=== PATIENT | female | born 1950 | race Caucasian/White ===

== ENCOUNTER → 2019-08-31 13:51 | Outpatient (CLI) | payer MEDICARE, SELFPAY ==
--- NOTE | ~2019-08-31 | XR_ITS ---
XR wrist RT min 3V DATE: 08/31/2019 14:14 INDICATION: Right wrist pain TECHNIQUE: 4 views COMPARISON: None FINDINGS: No fracture or dislocation, periosteal reaction or bone destruction is detected. Joint spac es are preserved. No erosive change or chondrocalcinosis. IMPRESSION: No significant abnormality Reviewed, dictated and finalized at location A. IMPRESSION: No significant abnormality
== END ==
PROVIDERS: PCP Family Medicine; Visit Provider Physician Assistant
DX: M25.539 Pain in unspecified wrist (principal)
CPT/HCPCS: 73110

== ENCOUNTER → 2020-04-07 14:51 | Outpatient (CLI) | payer MEDICARE, SELFPAY ==
--- NOTE | ~2020-04-07 | XR_ITS ---
EXAMINATION: XR knee RT 3V DATE: 04/07/2020 15:16 INDICATION: Right knee pain. TECHNIQUE: 3 views of right knee were obtained. COMPARISON: Right knee radiographs 02/09/2012 FINDINGS: Bone alignment is normal. No fracture. There is mild tricompartmental osteoarthritis. There is a small knee joint effusion. IMPRESSION: 1. Mild right knee osteoarthritis. 2. Small right knee joint effusion. Reviewed, dictated and finalized at location A. [employer]
== END ==
PROVIDERS: PCP Family Medicine; Visit Provider Physician Assistant
DX: M17.11 Unilateral primary osteoarthritis, right knee (principal); M25.461 Effusion, right knee
CPT/HCPCS: 73562

== ENCOUNTER → 2020-05-01 15:02 | Outpatient (CLI) | payer MEDICARE, SELFPAY ==
--- NOTE | ~2020-05-01 | MR_ITS ---
EXAMINATION: MR knee RT wo con DATE: 05/01/2020 16:10 INDICATION: Severe medial sided right knee pain TECHNIQUE: Magnetic resonance imaging (MRI) of the right knee was performed without intravenous contr ast. Sequences included coronal PD-weighted FSE, coronal PD-weighted FS FSE, sagittal T2-weighted FS E, sagittal PD-weighted FS FSE and axial PD weighted fat saturated FSE. COMPARISON: None. FINDINGS: Medial compartment: Complex tear which extends obliquely in all 3 planes across the posterior horn and posterior body of the medial meniscus. Partial-thickness chondral ulceration with chondral surface regularity throughou t the medial tibial plateau and anterior to central weightbearing medial femoral condyle. Lateral compartment: Longitudinal vertical tear along the inner third of the body and anterior horn of the lateral meniscu s. Suggestion of the tear is complex with additional small tear involving the superior articular surf howard and the middle third of the lateral meniscal body. Evaluation of the morphology of the tear is ho wever somewhat limited by the slightly larger than typical phmxa-va-[id number] related to patient body habi tus. Deep chondral fissuring without degenerative subchondral changes at the central and medial aspec ts of the lateral tibial plateau. Juxtaposed band of deep chondral fissuring extending from anterior to posterior across the anterior to central weightbearing lateral femoral condyle also without degene rative subchondral changes. Patellofemoral compartment: Deep chondral ulceration with suggestion of early remodeling of the articular cortex with mild cortic al irregularity and underlying subarticular increased marrow signal at the medial patellar facet and apical ridge. Additional partial thickness chondral ulceration and fissuring involving up to 50% the cartilage thickness at the medial trochlea, trochlear groove and superior and medial aspects of the l ateral trochlea. Ligaments and tendons: Anterior and posterior cruciate ligaments are normal. The fibular collateral ligament complex is norm al. There is thickening of the proximal medial collateral ligament with increased intrasubstance sign al along the posterior aspect of the ligament as well as mild edema along the superficial margin cons istent with low to moderate grade sprain. The extensor mechanism is normal. Mild tendinopathy without discrete tear of the semimembranosus tendon. The visualized medial and lateral hamstring tendons as well as the iliotibial band are otherwise normal. Fluid: Small to moderate sized right knee joint effusion. No loose osteochondral bodies identified. Prepatel lar edema without a discrete bursal fluid collection. Additional synovitis with a few septations with in a 4.5 x 1.5 x 1.4 cm Aguila cyst. Osseous/other: Normal marrow signal aside from the previous noted mild subarticular cystic change at the patella. No fracture or pathologic marrow replacing process. IMPRESSION: 1. Complex medial meniscal tear. 2. Lateral meniscal tear, likely also complex. 3. Moderate medial and patellofemoral compartment predominant tricompartmental osteoarthritis with hi gh-grade patellar chondromalacia and moderate grade chondromalacia at the bilaterally at the trochlea r, tibial plateaus and weightbearing femoral condyles. 4. Low to moderate grade sprain of the medial collateral ligament. 5. Small to moderate-sized right knee joint effusion with small Aguila's cyst. Reviewed, dictated and finalized at location B. IMPRESSION: 1. Complex medial meniscal tear. 2. Lateral meniscal tear, likely also complex. 3. Moderate medial and patellofemoral compartment predominant tricompartmental osteoarthritis with high-grade patellar chondromalacia and moderat
== END ==
PROVIDERS: Visit Provider Orthopaedic Surgery
DX: S83.231A Complex tear of medial meniscus, current injury, right knee, initial encounter (principal); X58.XXXA Exposure to other specified factors, initial encounter; M25.461 Effusion, right knee; S83.411A Sprain of medial collateral ligament of right knee, initial encounter; S83.281A Other tear of lateral meniscus, current injury, right knee, initial encounter
CPT/HCPCS: 73721

== ENCOUNTER 2023-09-02 10:05 | Emergency (ER) | payer MEDICARE, MEDICAID, SELFPAY ==
[2023-09-02 10:29] VITALS: BP 145/86; PULSE 110; RESP 18; TEMP 37.5; O2SAT 95
--- NOTE | 2023-09-02 10:44 | ED.GENADULT ---
HPI - General Adult General Chief complaint: Urogenital-Female Stated complaint: Sinus/Fever Source: patient Mode of arrival: ambulatory Limitations: no limitations History of Present Illness HPI narrative: Patient presents for evaluation of multiple concerns. Her primary concern is sick symptoms. Symptoms including cough, dyspnea on exertion, subjective fever, chills, and sore throat. Her symptoms started about a week ago. A family member with whom she recently spent time tested positive for COVID. She does not smoke. She has a lesion to the left side of her tongue. Her primary care provider referred to ENT and she has an appt with them next month. She is also concerned about urinary symptoms which include dysuria and suprapubic pain. She has chronic urinary urgency, unchanged. She denies any hesitancy or frequency. Related Data Allergies Allergy/AdvReac Type Severity Reaction Status Date / Time ketorolac Allergy Unknown Dizziness Verified 09/02/23 10:07 Review of Systems Review of Systems: CONSTITUTIONAL: reports fever and chills. EYES: Denies visual changes, redness, or discharge. ENT: Reports sore throat. Reports tongue lesion. Denies rhinorrhea, congestion orotalgia. CARDIOVASCULAR: Denies chest pain, palpitations, or edema. RESPIRATORY: Reports cough and shortness of breath on exertion GASTROINTESTINAL: Denies abdominal pain, nausea, vomiting, or diarrhea. GENITOURINARY: reports dysuria and suprapubic pain without other urinary symptoms SKIN: Denies rash or itching. MUSCULOSKELETAL: Denies back pain, joint pain, or myalgia. NEUROLOGIC: Denies headache, numbness, dizziness, or weakness. PSYCHIATRIC: Denies anxiety or depression. [facility] Past Medical History Medical History Degenerative disc disease Elevated glucose Essential hypertension HLD (hyperlipidemia) Lung nodule Tongue lesion Surgical History Surgical History History of partial hysterectomy Hx of appendectomy Hx of tonsillectomy Family History Family History Unknown Depression Diabetes mellitus Hypertension Heart disease Uterine cancer Other Family history of arthritis Family history of coronary artery disease Family history of malignant neoplasm of uterus Family history of mental disorder Social History Social History Smoking status: Never smoker Second hand tobacco smoke exposure: No Alcohol intake: never Substance use: never Substance use type: does not use Lack of Transportation: YES Lack of Food: Never True Current Housing: I Have Housing Concerned About Future Housing: No Difficulty Paying Gas/Electric Bills: No Difficulty Paying for Meds: No Currently Unemployed: No Education: High School Diploma/GED Difficulty w/ Childcare or Family Care: No Spiritual care concerns: No Agree to blood products: Yes Exam Narrative: GENERAL: Well-appearing, well-nourished, and in no acute distress. HEAD: Normocephalic, atraumatic. EYES: PERRLA and EOMI. ENT: Nares clear, no rhinorrhea or epistaxis. Mucous membranes moist. There is an 8 mm raised pink lesion to the left side of her tongue Bilateral TMs pearly watt nonbulging NECK: Supple. No adenopathy or masses. No carotid bruits or JVD CHEST: Clear to auscultation. No respiratory distress. No wheezes rales or rhonchi HEART: Regular rate and rhythm. No murmur heard. Normal peripheral pulses. ABDOMEN: Soft, nontender, nondistended, normal active bowel sounds. EXTREMITIES: Normal range of motion. No edema. SKIN: Warm, dry, no rash. NEURO: No focal deficits. Alert and oriented x3. PSYCH: Normal mood and affect. Course Course Emergency Course: This is a 73-year-old female who presented
[2023-09-02 10:48] LABS: EDINFLUASCREEN Negative; EDINFLUBSCREEN Negative
[2023-09-02 10:51] LABS: EDUAAPPEAR Clear; EDUABILI Negative; EDUABLOOD Trace; EDUACOLOR1 Yellow; EDUAGLUCOSE Negative; EDUAKETONE Negative; EDUALEUKO 1+; EDUANITRATE Negative; EDUAPH 5.5; EDUAPROTEIN Negative; EDUASPGRAVITY 1.015; EDUAUROBILI 0.2
[2023-09-02 10:57] LABS: EDSTREPNEGPOS1 Presumptive Negative
== END 2023-09-02 11:32 | disposition home or self-care (01) ==
PROVIDERS: Emergency Provider Nurse Practitioner; PCP Family Medicine
DX: N39.0 Urinary tract infection, site not specified (principal); J06.9 Acute upper respiratory infection, unspecified; Z20.822 Contact with and (suspected) exposure to COVID-19; I10 Essential (primary) hypertension; E78.5 Hyperlipidemia, unspecified; Z90.711 Acquired absence of uterus with remaining cervical stump
CPT/HCPCS: 81003; 87081; 87086; 87088; 87426; 87804; 87880; 99213; G0463

== ENCOUNTER 2023-10-12 13:04 | Emergency (ER) | payer MEDICARE, MEDICAID, SELFPAY ==
--- NOTE | 2023-10-12 13:10 | ED.EXTPRO ---
HPI - Extremity Problem General Chief complaint: Extremity Problem,Nontraumatic Stated complaint: left big toe issue Time Seen by Provider: 10/12/23 13:09 Source: patient Mode of arrival: ambulatory Limitations: no limitations History of Present Illness HPI Narrative: Nellie is a 73-year-old female patient presenting to the clinic today with complaints of left great toe pain. She reports she thinks she may have stepped on something a few nights ago in her studio and she now has toe pain to the bottom of her left great toe. She denies any fever, chills, body aches. No history of gout in the past. Denies any known injury however thinks that could be broken. Patient states that she canceled her podiatry appointment that was supposed to be at 1:10 today and decided to come to the urgent care for further evaluation because her sister told her that we can take care of everything. Related Data Home Medications Medication Instructions Recorded Confirmed oxybutynin chloride 5 mg 5 mg PO DAILY 10/12/23 10/12/23 tablet,extended release 24 hr Allergies Allergy/AdvReac Type Severity Reaction Status Date / Time ketorolac Allergy Unknown Dizziness Verified 10/12/23 13:06 Review of Systems Review of Systems: Pertinent positives per HPI. Patient denies any fever, chills, rash, headache, visual changes, dizziness, cough, runny nose, sore throat, shortness of breath, chest pain, palpitations, nausea, vomiting, diarrhea, constipation, abdominal pain, or any urinary issues. PMFSH Past Medical History Medical History Degenerative disc disease Elevated glucose Essential hypertension HLD (hyperlipidemia) Lung nodule Tongue lesion Surgical History Surgical History History of partial hysterectomy Hx of appendectomy Hx of tonsillectomy Family History Family History Unknown Depression Diabetes mellitus Hypertension Heart disease Uterine cancer Other Family history of arthritis Family history of coronary artery disease Family history of malignant neoplasm of uterus Family history of mental disorder Social History Social History Smoking status: Never smoker Second hand tobacco smoke exposure: No Alcohol intake: never Substance use: never Substance use type: does not use Lack of Transportation: YES Lack of Food: Never True Current Housing: I Have Housing Concerned About Future Housing: No Difficulty Paying Gas/Electric Bills: No Difficulty Paying for Meds: No Currently Unemployed: No Education: High School Diploma/GED Difficulty w/ Childcare or Family Care: No Spiritual care concerns: No Agree to blood products: Yes Comments At the time of my signature, I reviewed and agree with the nursing past medical, surgical, social, and family history. There is no relevant family history pertinent to the patient complaint. Exam Narrative: General: Well-developed, well nourished, in no apparent distress Head: Normocephalic, atraumatic. Cardio: Regular rate and rhythm, s1 and s2 normal, no murmur appreciated. Resp: Clear to auscultation bilaterally, no rhonchi, rales, wheezing or rubs. Musculoskeletal: No deformity, mild tender to palpation over the volar aspect of the distal left toe, mild redness without swelling, was able to remove some dry skin using a tongue blade to check for puncture wound-no visual puncture wound, all toenails on the left foot toenail fungus, grossly normal range of motion, muscle strength strong and equal, peripheral pulse strong, no edema, no cyanosis, normal gait and station Course Course Emergency Course: Portions of this record may have been created with voice recognition software. Level of Care: [facility] Visit V
[2023-10-12 13:25] VITALS: BP 145/107; PULSE 118; RESP 16; TEMP 37.6; O2SAT 98
== END 2023-10-12 13:36 | disposition home or self-care (01) ==
PROVIDERS: Emergency Provider Nurse Practitioner Family; PCP Family Medicine
DX: M79.675 Pain in left toe(s) (principal); I10 Essential (primary) hypertension; E78.5 Hyperlipidemia, unspecified; Z90.711 Acquired absence of uterus with remaining cervical stump
CPT/HCPCS: 99212; G0463

== ENCOUNTER 2024-11-06 11:32 | Emergency (ER) | payer MEDICARE, MEDICAID, SELFPAY ==
--- NOTE | 2024-11-06 11:34 | ED.FEMALEGU ---
HPI - Female Genitourinary General Chief complaint: Urogenital-Female Stated complaint: UTI Time Seen by Provider: 11/06/24 11:34 Source: patient Mode of arrival: ambulatory Limitations: no limitations History of Present Illness HPI Narrative: Patient is a 74-year-old female that presents with 7 days of urinary incontinence, frequency, urgency and burning with urination. Reports fever of up to 102. Has taken ibuprofen for fever. Also reports lower left back discomfort. Denies any nausea, vomiting, diarrhea. MD elicited complaint: dysuria Related Data Home Medications ?Medication ?Instructions ?Recorded ?Confirmed ?Last Taken ?Type oxybutynin chloride 5 mg 5 mg PO DAILY 10/12/23 10/12/23 Unknown History tablet,extended release 24 hr Allergies Allergy/AdvReac Type Severity Reaction Status Date / Time ketorolac Allergy Unknown Dizziness Verified 11/06/24 11:42 Review of Systems Review of Systems: All systems reviewed & are unremarkable except as noted in HPI and below Constitutional: Constitutional: Denies chills, Denies fever(s), Denies headache(s), Denies malaise and Denies weakness Eyes: Eyes: Denies change in vision, Denies eye discharge and Denies irritation ENT: Denies otalgia, Denies headache(s), Denies nasal congestion, Denies nasal discharge, Denies sinus pain and Denies sore throat Cardiovascular: Cardiovascular: Denies chest pain, Denies edema, Denies palpitations and Denies dyspnea Respiratory: Respiratory: Denies cough and Denies dyspnea Gastrointestinal: Gastrointestinal: Denies abdominal pain, Denies diarrhea, Denies nausea and Denies vomiting Genitourinary: Genitourinary: Denies hematuria, Reports nocturia, Reports dysuria, Denies flank pain and Reports urinary urgency Musculoskeletal: Musculoskeletal: Denies back pain and Denies numbness Integumentary/Breasts: Skin/Breast: Denies pruritus and Denies rash Neurologic: Denies headache(s), Denies numbness and Denies weakness Psychiatric: Psychiatric: Reports no additional psychiatric complaints Endocrine: Endocrine: Denies palpitations PMFSH Past Medical History Medical History Tongue lesion Essential hypertension Degenerative disc disease Lung nodule Elevated glucose HLD (hyperlipidemia) Surgical History Surgical History Hx of appendectomy Hx of tonsillectomy History of partial hysterectomy Family History Family History Unknown Depression Diabetes mellitus Hypertension Heart disease Uterine cancer Other Family history of arthritis Family history of coronary artery disease Family history of malignant neoplasm of uterus Family history of mental disorder Social History Social History Smoking status: Never smoker Second hand tobacco smoke exposure: No Alcohol intake: never Substance use: never Substance use type: does not use Lack of Transportation: YES Lack of Food: Never True Current Housing: I Have Housing Concerned About Future Housing: No Difficulty Paying Gas/Electric Bills: No Difficulty Paying for Meds: No Currently Unemployed: No Education: High School Diploma/GED Difficulty w/ Childcare or Family Care: No Spiritual care concerns: No Agree to blood products: Yes Comments At time of signature, agree with nursing past medical, surgical, social and family history. There is no relevant family history pertinent to the presenting complaint. Exam Const: General: cooperative, healthy appearing, comfortable, no acute distress and well nourished Nutritional Appearance: well nourished Orientation/consciousness: patient oriented x3 HENMT: Head: normocephalic and atraumatic Ears: external ears normal Face/Nose/Sinus: Normal external nose present, Normal nares present and normal facial exam Face and sinus: normal facial exam Eyes: General: appearance normal, both eyes and all related structures Pupils: Equal, round and reactive pupils present EOM: EOMs intact bilaterally Neck: Neck: normal visual inspection, full ROM and supple Chest: Chest palpation & inspection: normal inspection of the chest Resp: Effort & Inspection: normal respiratory effort and able to speak in complete sentences Cardio: Rate: regular rate and tachycardic Rhythm: regular rhythm GI: Inspection: normal to inspection GI Palp: No abdominal tenderness and Yes Soft to palpation : General: Yes CVA tenderness on the left Back/Spine/Pelvis: Back: no CVA tenderness Skin: General skin exam: normal color and no rashes or lesions noted Neuro: General: patient oriented x3 and moves all extremities Cranial nerves: Yes Equal, round and reactive pupils present Extrem: General: normal to inspection and full ROM Psych: Appearance: grossly normal and well kempt Course Course Emergency Course: Patient is aware of diagnosis, understands and agrees to treatment plan. Anticipatory guidance given. Patient agrees to follow-up as directed and is aware of reasons to seek care at the emergency department. Portions of this record may have been created with voice recognition software Level of Care: Express Care Visit Vital Signs Vital signs: Vital Signs Temperature 37.1 C 11/06/24 11:44 Pulse Rate 113 H 11/06/24 11:44 Respiratory Rate 16 11/06/24 11:44 Blood Pressure 148/67 H 11/06/24 11:44 Pulse Oximetry 97 11/06/24 11:44 Oxygen Delivery Room Air 11/06/24 11:44 Temperature 37.1 C 11/06/24 11:44 Pulse Rate 113 H 11/06/24 11:44 Respiratory Rate 16 11/06/24 11:44 Blood Pressure 148/67 H 11/06/24 11:44 Pulse Oximetry 97 11/06/24 11:44 Oxygen Delivery Room Air 11/06/24 11:44 Reviewed MDM - Female Genitourinary MDM Narrative Medical decision making narrative: Discussed the importance of following up with Urology as she has had multiple negative urine cultures in the past 2 years. Exam findings and UA show probable UTI; patient is non-toxic appearing and is in no distress. No CMT, adnexal tenderness, or evidence of pelvic etiology. Patient is appropriate for outpatient treatment and follow-up. Differential Diagnosis Differential diagnosis: Likely urinary tract infection, bacterial vaginosis, trichomoniasis, cervicitis, vaginitis and cystitis Medical Records Attestation: I reviewed the patient's medical records. Lab Data Attestation: I reviewed the patient's lab results. Labs: Lab Results 11/06/24 Range/Units 12:16 POC Urine Color Yellow POC Urine Clarity Clear POC Urine pH 5.5 POC Ur Specif [place] 1.020 POC Urine Protein 1+ (Negative) POC Ur Glucose (UA) Negative (Negative) POC Urine Ketones Trace (Negative) POC Urine Blood Trace (Negative) POC Urine Nitrite Negative (Negative) POC Urine Bilirubin Negative (Negative) POC Urine Urobilinogen 0.2 POC U Leukocyte Esteras Trace (Negative) Discharge Plan Discharge Clinical Impression: Urinary tract infection Patient Disposition: Home Condition: Stable Instructions: Urinary Tract Infection in Women (ED) Additional Instructions: We will send a urine culture to the lab, based on your symptoms and urine dip we will start treatment today. If culture comes back and bacteria is not susceptible to antibiotic, your prescription may change. Your symptoms should improve within a day of starting antibiotics, but you should finish all the antibiotic pills you get. Otherwise your infection might come back Continue with increased water intake. Take Tylenol or ibuprofen as needed for pain or fever. Follow-up with primary care provider for urine recheck or see ER visit if condition worsens with high fever, nausea, vomiting, severe back pain Patient Language: Arabic Prescriptions: New sulfamethoxazole-trimethoprim 800-160 mg tablet 1 tablet PO Q12H 10 Days Qty: 20 0RF No Action oxybutynin chloride 5 mg tablet extended release 24hr 5 mg PO DAILY amlodipine 5 mg tablet 5 mg PO DAILY Qty: 90 1RF Follow-up/Referrals: Frieda Keys MD [Primary Care Provider, Family Practice] - 3 Days Time of Disposition: 12:51
[2024-11-06 11:44] VITALS: BP 148/67; PULSE 113; RESP 16; TEMP 37.1; O2SAT 97
[2024-11-06 12:22] LABS: EDUAAPPEAR Clear; EDUABILI Negative (Negative); EDUABLOOD Trace (Negative); EDUACOLOR1 Yellow; EDUAGLUCOSE Negative (Negative); EDUAKETONE Trace (Negative); EDUALEUKO Trace (Negative); EDUANITRATE Negative (Negative); EDUAPH 5.5; EDUAPROTEIN 1+ (Negative); EDUASPGRAVITY 1.020; EDUAUROBILI 0.2
== END 2024-11-06 12:55 | disposition home or self-care (01) ==
PROVIDERS: Emergency Provider Nurse Practitioner Family; PCP Family Medicine
DX: N39.0 Urinary tract infection, site not specified (principal); I10 Essential (primary) hypertension; E78.5 Hyperlipidemia, unspecified; Z90.711 Acquired absence of uterus with remaining cervical stump
CPT/HCPCS: 81003; 87086; 99213; G0463